=== PATIENT | male | born 1985 | race Caucasian/White ===

== ENCOUNTER → 2019-07-26 15:25 | Outpatient (BNVA) | payer SELFPAY | PROVIDERS: Family Provider Nurse Practitioner Family; PCP Nurse Practitioner Family; Visit Provider Nurse Practitioner Family | DX: I10 Essential (primary) hypertension (principal); R45.4 Irritability and anger | CPT/HCPCS: 80048; 80061 ==

== ENCOUNTER → 2021-06-13 11:36 | Outpatient (BNVA) | payer SELFPAY | PROVIDERS: Family Provider Nurse Practitioner Family; PCP Nurse Practitioner Family; Visit Provider Nurse Practitioner Family | DX: L03.90 Cellulitis, unspecified (principal); L03.032 Cellulitis of left toe; M79.673 Pain in unspecified foot | CPT/HCPCS: 87070; 87077; 87184 ==